=== PATIENT | male | born 1970 | race Caucasian/White ===

== ENCOUNTER 2024-07-01 16:14 | Emergency (ER) | payer OTHER ==
[~2024-07-01] VITALS: Ht 188 cm; Wt 127.8 kg
--- NOTE | 2024-07-01 16:53 | ED.PDOC ---
Musculoskeletal HPI Comments 53 YEAR OLD MALE PRESENTS TO THE ED WITH A CHIEF COMPLAINT OF RT SHOULDER PAIN ONSET 3 DAYS. PATIENT STATES HE WAS SITTING ON A PLASTIC CHAIR, BROKE, FELL AND LANDED ON RT SHOULDER. PATIENT STATES HE IS NOT ABLE TO MOVE RT SHOULDER DUE TO PAIN. DENIES ANY PMHX WELL LOC, CHEST PAIN, SHORTNESS OF BREATH, FEVER, CHILLS, HEADACHE, DIZZINESS. NO OTHER SYMPTOMS OR MODIFYING FACTORS PRESENT AT THIS TIME. Chief Complaint: Upper Extremity Time Seen by MD: 16:25 Primary Care Provider: [facility] Reviewed Notes: Medications, Allergies Allergies: Coded Allergies: NO KNOWN ALLERGIES (Unverified , 07/01/24) Information Source: Patient Mode of Arrival: Ambulatory Location: Right Extremity Location: Shoulder Timing: Days Prehospital treatment: None Severity: Moderate Able to Move Extremity: No Pain: Moderate Circumstances: Fall Onset of Symptoms: Spontaneous Symptoms: Swelling, Pain DVT Risk Factors: NONE Associated signs and symptoms: Shoulder pain Past Medical History PAST MEDICAL HISTORY: Denies Surgical History: Denies all surgeries Family History Family History: Reviewed,noncontributory to illness, No family hx of Cancer, No family hx of DM, No family hx of Heart suly, No family hx of HTN, No family hx ofKidney suly, No family hx of Liver suly, No family hx of Lung suly, No family hx of Stroke Social History Smoker: Non-Smoker Alcohol: Denies ETOH Use Drugs: Denies Drug Use Lives In: Home Constitutional: denies: chills, diaphoresis, fatigue, fever, malaise, sweats, weakness, others EENTM: denies: blurred vision, double vision, ear bleeding, ear discharge, ear drainage, ear pain, ear ringing, eye pain, eye redness, hearing loss, mouth pain, mouth swelling, nasal discharge, nose bleeding, nose congestion, nose pa in, photophobia, tearing, throat pain, throat swelling, voice changes, others Respiratory: denies: cough, hemoptysis, orthopnea, SOB at rest, shortness of breath, SOB with excertion, stridor, wheezing, others Cardiovascular: denies: chest pain, dizzy spells, diaphoresis, Dyspnea on exertion, edema, irregular heart beat, left arm pain, lightheadedness, palpitations, PND, syncope, others Gastrointestinal: denies: abdomen distended, abdominal pain, blood streaked bowels, constipated, diarrhea, dysphagia, difficulty swallowing, hematemesis, melena, nausea, poor appetite, poor fluid intake, rectal bleeding, rectal pain, vomiting, others Genitourinary: denies: burning, dysuria, flank pain, frequency, hematuria, incontinence, penile discharge, penile sore, pain, testicle pain, testicle swelling, urgency, others Neurological: denies: dizziness, fainting, headache, left sided numbness, left sided weakness, numbness, paresthesia, pre-existing deficit, right sided numbness, right sided weakness, seizure, speech problems, tingling, tremors, weakness, others Musculoskeletal: reports: others (RT shoulder pain); denies: back pain, gout, joint pain, joint swelling, muscle pain, muscle stiffness, neck pain Integumetry: denies: bruises, change in color, change in hair/nails, dryness, laceration, lesions, lumps, rash, wounds, others Allergic/Immunocompromised: denies: Difficulty Healing, Frequent Infections, Hives, Itching, others Hematologic/Lymphatic: denies: anemia, blood clots, easy bleeding, easy bruising, swollen glands, others Endocrine: denies: excessive hunger, excessive sweating, excessive thirst, excessive urination, flushing, intolerance to cold, intolerance to heat, unexplained weight gain, unexplained weight loss, others Psychiatric: denies: anxiety, bipolar disorder, depression, hopeless, panic disorder, schizophrenia, sleepless, suicidal, others All Other Systems: Reviewed and Negative Physical Exam General Appearance: No Apparent Distress, Normal HEENT: Normal ENT Inspection, Pharynx Normal, TMs Normal Neck: Full Range of Motion, Non-Tender, Normal, Normal Inspection Respiratory: Chest Non-Tender, Lungs Clear, No Accessory Muscle Use, No R espiratory Distress, Normal Breath Sounds Cardiovascular: No Edema, No JVD, No Murmur, No Gallop, Normal Peripheral Pulses, Regular Rate/Rhythm Breast Exam: Deferred Gastrointestinal: No Organomegaly, Non Tender, No Pulsatile Mass, Normal Bowel Sounds, Soft Genitalia: Deferred Pelvic: Deferred Rectal: Deferred Extremities: No calf tenderness, Tender (RT shoulder, anteroir lateral ), Other (unable to move rt shoulder, no obvious deformities noted) Musculoskeletal : Apperance: Normal Neurologic: Alert, pastor II-XII nml as Tested, No Motor Deficits, Normal Affect, Normal Mood, No Sensory Deficits Cerebellar Function: Normal Reflexes: Normal Skin: Dry, Normal Color, Warm Lymphatic: No Adenopathy Was a procedure done? Was a procedure done?: No Differential Diagnosis EXT Differential Diagnosis: Fracture, Sprain, Dislocation X-Ray, Labs, Meds, VS Vital Signs Date Time Temp Pulse Resp B/P (MAP) Pulse Ox O2 Delivery O2 Flow Rate FiO2 07/01/24 16:17 97.2 125 20 140/91 (107) 97 X-Ray, Labs, Meds, VS Comment Imaging: X-rays and CT scans were reviewed and interpreted by this provider, imaging shows no fractures and no pathological disease. Pending radiology review. Laboratory: Labs reviewed and interpreted by this provider. No significant abnormalities noted. Patient has prior medical visits reviewed. Med reconciliation performed Vital signs reviewed Time of 1ST Reevaluation: 16:55 Reevaluation 1ST: Unchanged Patient Education/Counseling: Diagnosis, Treatment, Prognosis, Need For Follow Up (Patient advised he will need to be follow up with workforce specialist for further evaluation.) Family Education/Counseling: No Family Present Departure 1 Departure Time of Disposition: 17:03 Impression: Primary Impression: Sprain of right shoulder Qualified Codes: S43.401A - Unspecified sprain of right shoulder joint, initial encounter Disposition: HOME / SELF CARE / HOMELESS Condition: Fair e-Prescriptions Diclofenac Potassium (Diclofenac Potassium) 50 Mg Tab 1 TAB PO BID PRN, #60 TAB Prov: DONNA GONZALEZ 07/01/24 Discharged With: Self Critical Care Note Critical Care Time?: No Stability Stability form required: No Heart Score Heart Score: Heart Score Response (Comments) Value History N/A 0 EKG N/A 0 Age N/A 0 Risk Factors N/A 0 Troponin N/A 0 Total 0 I personally scribed for DONNA GONZALEZ ([email or web address]) on 07/01/24 at 16:53. Electronically submitted by Joelle Damico ([email or web address]). DONNA GONZALEZ Jul 01, 2024 16:53
--- NOTE | 2024-07-01 16:54 | DVH ---
EXAM: XY R SHOULDER 2+ VIEW XRAY HISTORY: RIGHT SHOULDER PAIN COMPARISON: None TECHNIQUE: 3 views of the right shoulder were performed. FINDINGS: No acute fracture or dislocation are identified about the right shoulder. There is acromioclavicular hypertrophy without loss of subacromial space. There is mild glenohumeral osteoarthritis. IMPRESSION: Degenerative changes of the right shoulder without evidence of acute fracture.
[2024-07-01] MEDS ORDERED: DICL50TA2 PO (17:05)
[2024-07-01] MEDS: KETOROLAC TROMETH 30 MG/ML 1ML VIAL IM ONE (19:10)
[2024-07-01] MEDS: methylPREDNISolone SOD SUCC 125 MG/2 ML VL IM ONE (19:11)
[2024-07-01 19:15] VITALS: BP 136/87; PULSE 114; RESP 18; TEMP 98.6; O2SAT 96
[2024-07-01] MEDS ORDERED: HYDR-4798 PO (19:18)
== END 2024-07-01 19:20 | disposition home or self-care (01) ==
LOC: ER 16:14
DX: S43.491A Other sprain of right shoulder joint, initial encounter (principal); W07.XXXA Fall from chair, initial encounter; Y93.89 Activity, other specified; Y92.89 Other specified places as the place of occurrence of the external cause; Y99.8 Other external cause status
CPT/HCPCS: 73030; 96372; 99284; J1885; J2919